=== PATIENT | female | born 1970 | race American Indian/Alaskan Native ===

== ENCOUNTER 2016-06-16 13:28 | Emergency (ER) | payer MEDICARE ==
--- NOTE | 2016-06-16 17:21 | Emergency Department Report ---
- General Chief complaint: Skin Rash Stated complaint: ARM AND LEG BITES Time Seen by Provider: 06/16/16 16:50 Source: patient Mode of arrival: Ambulatory Limitations: No Limitations - History of Present Illness Initial comments: Patient here reports that she was bit by a spider area to her right outer ankle and right forearm 2 days ago. Denies any fever or chills. Denies any nausea vomiting or diarrhea. She reports pain is 8 out of 10 to site and she took Benadryl but no relief. She reports redness and swelling to right forearm and right ankle that is getting worst. Denies any numbness or tingling to extremities. Denies any trauma. MD complaint: insect bite/sting, discoloration Onset/Timin -: days(s) Tetanus Up to Date: no Location: RUE (right forearm), RLE (right ankle) Severity: severe Severity scale (0 -10): 8 Quality: constant, other (sore) Consistency: constant Improves with: immobilization Worsens with: palpation, movement Context: witnessed insect bite Associated symptoms: athralgias Treatments Prior to Arrival: Benadryl - Related Data Previous Rx's Medication Instructions Recorded Last Taken Type HYDROcodone/APAP 5-325 [[place] 1 each PO Q6HR PRN #10 tablet 06/27/13 Unknown Rx 5-325 mg TAB] Ibuprofen [Motrin] 800 mg PO TID PRN #20 tablet 06/27/13 Unknown Rx Cyclobenzaprine [Flexeril 10mg] 10 mg PO TID PRN #12 tablet 05/16/14 Unknown Rx HYDROcodone/APAP 5-325 [[place] 1 each PO Q8HR PRN #10 tablet 05/16/14 Unknown Rx 5-325 mg TAB] Cyclobenzaprine [Flexeril 10 MG 10 mg PO TID PRN #20 tablet 06/24/14 Unknown Rx TAB] HYDROcodone/APAP 10-325 [[place] 1 each PO Q6HR PRN #10 tablet 06/24/14 Unknown Rx 10-325 mg TAB] Prednisone [Prednisone 10 mg 10 mg PO .TAPER #1 tab.ds.pk 06/24/14 Unknown Rx (6-Day Pack, 21 Tabs)] Ketorolac [Toradol] 10 mg PO Q6H PRN #12 tablet 02/11/16 Unknown Rx Ibuprofen [Motrin 600 MG tab] 600 mg PO Q8H PRN #20 tablet 06/16/16 Unknown Rx Sulfamethoxazole/Trimethoprim 1 each PO BID #20 tablet 06/16/16 Unknown Rx [Bactrim DS TAB] Allergies Allergy/AdvReac Type Severity Reaction Status Date / Time No Known Allergies Allergy Unverified 11/04/15 18:42 Abscess Boil HPI - HPI Chief Complaint: Skin Rash Stated Complaint: ARM AND LEG BITES Time Seen by Provider: 06/16/16 16:50 Home Medications: Previous Rx's Medication Instructions Recorded Last Taken Type HYDROcodone/APAP 5-325 [[place] 1 each PO Q6HR PRN #10 tablet 06/27/13 Unknown Rx 5-325 mg TAB] Ibuprofen [Motrin] 800 mg PO TID PRN #20 tablet 06/27/13 Unknown Rx Cyclobenzaprine [Flexeril 10mg] 10 mg PO TID PRN #12 tablet 05/16/14 Unknown Rx HYDROcodone/APAP 5-325 [[place] 1 each PO Q8HR PRN #10 tablet 05/16/14 Unknown Rx 5-325 mg TAB] Cyclobenzaprine [Flexeril 10 MG 10 mg PO TID PRN #20 tablet 06/24/14 Unknown Rx TAB] HYDROcodone/APAP 10-325 [[place] 1 each PO Q6HR PRN #10 tablet 06/24/14 Unknown Rx 10-325 mg TAB] Prednisone [Prednisone 10 mg 10 mg PO .TAPER #1 tab.ds.pk 06/24/14 Unknown Rx (6-Day Pack, 21 Tabs)] Ketorolac [Toradol] 10 mg PO Q6H PRN #12 tablet 02/11/16 Unknown Rx Ibuprofen [Motrin 600 MG tab] 600 mg PO Q8H PRN #20 tablet 06/16/16 Unknown Rx Sulfamethoxazole/Trimethoprim 1 each PO BID #20 tablet 06/16/16 Unknown Rx [Bactrim DS TAB] Allergies/Adverse Reactions: Allergies Allergy/AdvReac Type Severity Reaction Status Date / Time No Known Allergies Allergy Unverified 11/04/15 18:42 ED Review of Systems ROS: Stated complaint: ARM AND LEG BITES Other details as noted in HPI Comment: All other systems reviewed and negative Constitutional: denies: chills, fever ENT: denies: throat pain Respiratory: no symptoms reported Cardiovascular: denies: chest pain, palpitations, orthopnea, edema, syncope Gastrointestinal: denies: abdominal pain, nausea, vomiting, diarrhea Musculoskeletal: joint swelling, arthralgia. denies: back pain Skin: rash. denies: lesions Neurological: denies: headache, numbness, paresthesias, abnormal gait, vertigo ED Past Medical Hx - Past Medical History Previous Medical History?: Yes Hx Psychiatric Treatment: Yes (Bipolar, depression, anxiety) Additional medical history: Back and neck pain - Surgical History Past Surgical History?: Yes Hx Appendectomy: Yes (2010) Additional Surgical History: Tubaligation, Abd. hernnia repair - Family History Family history: hypertension - Social History Smoking Status: Current Every Day Smoker Substance Use Type: Alcohol - Medications Home Medications: Home Medications Medication Instructions Recorded Confirmed Last Taken Type HYDROcodone/APAP 5-325 [[place] 1 each PO Q6HR PRN #10 tablet 06/27/13 06/24/14 Unknown Rx 5-325 mg TAB] Ibuprofen [Motrin] 800 mg PO TID PRN #20 tablet 06/27/13 06/24/14 Unknown Rx Cyclobenzaprine [Flexeril 10mg] 10 mg PO TID PRN #12 tablet 05/16/14 Unknown Rx HYDROcodone/APAP 5-325 [[place] 1 each PO Q8HR PRN #10 tablet 05/16/14 Unknown Rx 5-325 mg TAB] Cyclobenzaprine [Flexeril 10 MG 10 mg PO TID PRN #20 tablet 06/24/14 Unknown Rx TAB] HYDROcodone/APAP 10-325 [[place] 1 each PO Q6HR PRN #10 tablet 06/24/14 Unknown Rx 10-325 mg TAB] Prednisone [Prednisone 10 mg 10 mg PO .TAPER #1 tab.ds.pk 06/24/14 Unknown Rx (6-Day Pack, 21 Tabs)] Ketorolac [Toradol] 10 mg PO Q6H PRN #12 tablet 02/11/16 Unknown Rx Ibuprofen [Motrin 600 MG tab] 600 mg PO Q8H PRN #20 tablet 06/16/16 Unknown Rx Sulfamethoxazole/Trimethoprim 1 each PO BID #20 tablet 06/16/16 Unknown Rx [Bactrim DS TAB] ED Physical Exam - General Limitations: No Limitations General appearance: alert, in no apparent distress - Head Head exam: Present: atraumatic, normocephalic - Eye Eye exam: Present: normal appearance, PERRL Pupils: Present: normal accommodation - ENT ENT exam: Present: normal exam, normal orophraynx, mucous membranes moist, TM's normal bilaterally, normal external ear exam - Neck Neck exam: Present: normal inspection, full ROM. Absent: tenderness, meningismus, lymphadenopathy - Respiratory Respiratory exam: Present: normal lung sounds bilaterally. Absent: respiratory distress - Cardiovascular Cardiovascular Exam: Present: regular rate, normal rhythm, normal heart sounds - GI/Abdominal GI/Abdominal exam: Present: soft, normal bowel sounds. Absent: distended, tenderness, guarding, rebound, rigid - Extremities Exam Extremities exam: Present: full ROM, tenderness (right forearm and right ankle) , normal capillary refill, joint swelling (right ankle), other (refill less than 3 seconds to extremities. She is able to move all her fingers without any difficulties. She is able to plantar flex and dorsiflex without any difficulties). Absent: normal inspection (right forearm in aspect right and swollen. No streaking noted. Right ankle out of aspect right and swollen without any streaking. Full range of motion to all extremities. No signs of neurovascular or tendon damage.), pedal edema, calf tenderness - Neurological Exam Neurological exam: Present: alert, oriented X3, normal gait, reflexes normal. Absent: motor sensory deficit - Psychiatric Psychiatric exam: Present: normal affect, normal mood - Skin Skin exam: Present: warm, dry, intact, rash, erythema - Expanded Skin Exam Expanded Distribution of rash: RUE (right forearm and right ankle), RLE Description of rash: Present: tenderness, erythematous (2 x 2 area of erythema to right forearm. 0.5 x 2 cm to right ankle), swelling (right ankle and right forearm), other (noted point of entry to right ankle and right forearm). Absent : discharge, fluctuant, indurated ED Course Vital Signs 06/16/16 06/16/16 14:59 17:49 Temperature 98.1 F Pulse Rate 64 61 Respiratory 18 16 Rate Blood Pressure 128/81 Blood Pressure 133/60 [Left] O2 Sat by Pulse 100 99 Oximetry - Reevaluation(s) Reevaluation #1: 06/16/16 18:26 Patient received Toradol 30 mg IM and districts in emergency room. ED Medical Decision Making - Medical Decision Making ED course: Patient received Boostrix and Toradol 30 mg IM and emergency room. Pain has been relieved. I assumed patient she has skin infection from insect bite. I discussed with her treatment plan and diagnosis. I discussed the patient if she redness and swelling increases over the next 24 hours thereafter to return to the emergency room MANN. She also received clindamycin 600 mg IM and emergency room without any adverse reaction. Patient with cellulitis status post insect bite to right forearm and right ankle. Discharged home with prescription for Bactrim DS and Motrin. Critical care attestation.: If time is entered above; I have spent that time in minutes in the direct care of this critically ill patient, excluding procedure time. ED Disposition Clinical Impression: Cellulitis of multiple sites, Arthralgia of right ankle Insect bite Qualifiers: Encounter type: initial encounter Qualified Code(s): W57.XXXA - Bitten or stung by nonvenomous insect and other nonvenomous arthropods, initial encounter Disposition: DISCHARGED TO HOME OR SELFCARE Is pt being admited?: No Does the pt Need Aspirin: No Condition: Stable Instructions: Arthralgia (ED), Insect Bite or Sting (ED), Cellulitis (ED) Additional Instructions: Please return to the emergency room if he notices fever, increased redness and swelling and increased pain to her right ankle and right forearm. Take medication as prescribed Follow-up with primary care physician in 24 hours Please keep affected area clean and dry Prescriptions: Ibuprofen [Motrin 600 MG tab] 600 mg PO Q8H PRN #20 tablet PRN Reason: Pain Sulfamethoxazole/Trimethoprim [Bactrim DS TAB] 1 each PO BID #20 tablet Referrals: PRIMARY CAREMD [Primary Care Provider] - 06/17/16 [facility] [Outside] - 06/17/16 Forms: Work/School Release Form(ED)
[2016-06-16] MEDS: TORADOL IM ONE (17:43)
[2016-06-16] MEDS: CLEOCIN IM ONE (17:43)
[2016-06-16] MEDS: BOOSTRIX IM ONE (17:43)
[2016-06-16 17:50] VITALS: BP 133/60
== END 2016-06-16 18:41 | disposition home or self-care (01) ==
LOC: ED 13:28
DX: L03.115 Cellulitis of right lower limb (principal); L03.113 Cellulitis of right upper limb; F31.9 Bipolar disorder, unspecified; F32.9 Major depressive disorder, single episode, unspecified; Z90.49 Acquired absence of other specified parts of digestive tract; Z98.51 Tubal ligation status; F17.200 Nicotine dependence, unspecified, uncomplicated; W57.XXXA Bitten or stung by nonvenomous insect and other nonvenomous arthropods, initial encounter; Y93.89 Activity, other specified; Y99.8 Other external cause status; Y92.89 Other specified places as the place of occurrence of the external cause
CPT/HCPCS: 90471; 90715; 96372; 99282; J1885

== ENCOUNTER 2017-02-22 12:47 | Emergency (ER) | payer MEDICARE ==
[2017-02-22 13:20] VITALS: BP 141/89
--- NOTE | 2017-02-22 13:20 | Emergency Department Report ---
ED Extremity Problem HPI - General Chief complaint: Shoulder Injury Stated complaint: SHOULDER PAIN Time Seen by Provider: 02/22/17 13:14 Source: patient Mode of arrival: Ambulatory Limitations: No Limitations - History of Present Illness Initial comments: PT states she came to the ED for a Toradol shot. PT states she has a hx of R shoulder bursitis. PT states 2-3 times a year the OTC Medication that she takes does not help. PT has previously been in pain management for this. 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 PT denies trauma. PT states she has had bursitis since 2011. PT states previous work ups have included plain films and MRI. MD Complaint: joint paint -: Gradual, days(s) (3 days ago pain increased ) Location: right History of Same: Yes (dx 2011 with bursitis ) -: Yes arthralgia, No fever, No associated chest pain Severity scale (0 -10): 10 Quality: constant Consistency: constant Improves with: nothing Worsens with: palpation, other (movement ) Associated Symptoms: denies other symptoms. denies: chest pain, shortness of breath, fever - Related Data Previous Rx's Medication Instructions Recorded Last Taken Type Prednisone [Prednisone 10 mg 10 mg PO .TAPER #1 tab.ds.pk 06/24/14 Unknown Rx (6-Day Pack, 21 Tabs)] Sulfamethoxazole/Trimethoprim 1 each PO BID #20 tablet 06/16/16 Unknown Rx [Bactrim DS TAB] Ibuprofen [Motrin 600 MG tab] 600 mg PO Q8H PRN #20 tablet 02/22/17 Unknown Rx methOCARBAMOL [Robaxin TAB] 500 mg PO Q6H PRN #14 tablet 02/22/17 Unknown Rx Allergies Allergy/AdvReac Type Severity Reaction Status Date / Time No Known Allergies Allergy Unverified 11/04/15 18:42 ED Review of Systems ROS: Stated complaint: SHOULDER PAIN Other details as noted in HPI Comment: All other systems reviewed and negative Constitutional: denies: fever, malaise Cardiovascular: denies: chest pain Gastrointestinal: denies: abdominal pain, nausea, vomiting Genitourinary: denies: abnormal menses (lmp 02-08-17) Musculoskeletal: arthralgia. denies: back pain, joint swelling ED Past Medical Hx - Past Medical History Hx Psychiatric Treatment: Yes (Bipolar, depression, anxiety) Additional medical history: Back and neck pain - Surgical History Hx Appendectomy: Yes (2010) Additional Surgical History: Tubaligation, Abd. hernnia repair - Social History Smoking Status: Current Every Day Smoker Substance Use Type: Alcohol - Medications Home Medications: Home Medications Medication Instructions Recorded Confirmed Last Taken Type Prednisone [Prednisone 10 mg 10 mg PO .TAPER #1 tab.ds.pk 06/24/14 Unknown Rx (6-Day Pack, 21 Tabs)] Sulfamethoxazole/Trimethoprim 1 each PO BID #20 tablet 06/16/16 Unknown Rx [Bactrim DS TAB] Ibuprofen [Motrin 600 MG tab] 600 mg PO Q8H PRN #20 tablet 02/22/17 Unknown Rx methOCARBAMOL [Robaxin TAB] 500 mg PO Q6H PRN #14 tablet 02/22/17 Unknown Rx ED Physical Exam - General Limitations: No Limitations General appearance: alert, in no apparent distress - Head Head exam: Present: atraumatic, normocephalic, normal inspection - Eye Eye exam: Present: normal appearance, PERRL, EOMI. Absent: conjunctival injection - ENT ENT exam: Present: normal exam, normal external ear exam - Neck Neck exam: Present: normal inspection, full ROM. Absent: tenderness, lymphadenopathy - Respiratory Respiratory exam: Present: normal lung sounds bilaterally. Absent: respiratory distress, chest wall tenderness - Cardiovascular Cardiovascular Exam: Present: regular rate, normal rhythm, normal heart sounds - GI/Abdominal GI/Abdominal exam: Present: soft. Absent: tenderness - Extremities Exam Extremities exam: Present: normal inspection, full ROM, tenderness, normal capillary refill - Expanded Upper Extremity Exam Right General: Present: normal inspection Shoulder Exam: Present: normal inspection, full ROM, tenderness (post shoulder ) . Absent: swelling, deformity, crepidus, tenderness over AC joint Upper Arm exam: Present: normal inspection Vascular: Absent: vascular compromise Left General: Present: normal inspection - Back Exam Back exam: Present: normal inspection, full ROM, tenderness (to R post. shoulder ). Absent: CVA tenderness (R), CVA tenderness (L) - Neurological Exam Neurological exam: Present: alert, oriented X3, normal gait - Expanded Neurological Exam Expanded Patient oriented to: Present: person, place, time Speech: Present: fluid speech Best Eye Response ([place]): (4) open spontaneously Best Motor Response ([place]): (6) obeys commands Best Verbal Response ([place]): (5) oriented [place] Total: 15 - Psychiatric Psychiatric exam: Present: normal affect, normal mood - Skin Skin exam: Present: warm, dry, intact, normal color. Absent: rash ED Course Vital Signs 02/22/17 13:17 Temperature 98.5 F Pulse Rate 75 Respiratory 16 Rate Blood Pressure 141/89 O2 Sat by Pulse 100 Oximetry - Reevaluation(s) Reevaluation #1: 02/22/17 13:25 PT does not want repeat imaging, given this is a chronic problem and pt denies new injury, this seems reasonable. Will treat her acute on chronic pain with Toradol injection and RX Motrin and Robaxin. PT verbalizes understanding. - Pulse Oximetry Interpretation Digit-Finger Initial Pulse Oximetry Readin Actions Taken: none ED Medical Decision Making - Differential Diagnosis bursitis, overuse, shoulder pain, chronic pain Critical Care Time: No Critical care attestation.: If time is entered above; I have spent that time in minutes in the direct care of this critically ill patient, excluding procedure time. ED Disposition Clinical Impression: Chronic right shoulder pain Disposition: DC-01 TO HOME OR SELFCARE Is pt being admited?: No Does the pt Need Aspirin: No Condition: Stable Instructions: Shoulder Bursitis (ED) Additional Instructions: Follow up with PCP in 3-5 days Have your BP rechecked at follow up No driving or alcohol after Robaxin Prescriptions: Ibuprofen [Motrin 600 MG tab] 600 mg PO Q8H PRN #20 tablet PRN Reason: Pain methOCARBAMOL [Robaxin TAB] 500 mg PO Q6H PRN #14 tablet PRN Reason: Pain Referrals: [facility] [Outside] - 3-5 Days CARMELO ORDOÑEZ MD [Staff Physician] - 3-5 Days WEST HO MD [Staff Physician] - 3-5 Days Forms: Work/School Release Form(ED) Time of Disposition: 13:29
[2017-02-22] MEDS: TORADOL IM ONE (13:27)
== END 2017-02-22 15:35 | disposition home or self-care (01) ==
LOC: ED 12:47
DX: M25.511 Pain in right shoulder (principal); G89.29 Other chronic pain; F17.200 Nicotine dependence, unspecified, uncomplicated
CPT/HCPCS: 96372; 99282; J1885

== ENCOUNTER 2017-02-25 02:39 | Emergency (ER) | payer MEDICARE ==
[2017-02-25 06:16] VITALS: BP 136/91
--- NOTE | 2017-02-25 07:43 | Emergency Department Report ---
Upper Extremity - HPI Chief Complaint: Shoulder Injury Stated Complaint: R. SHOULDER PAIN Time Seen by Provider: 02/25/17 07:08 Upper Extremity: Right Shoulder (Shoulder pain, chronic) Occurred When: 3 Days Mechanism: Other (painting) Severity: severe (10/10) Symptoms: Yes Pain with Movement (rt shoulder), No Deformity, No Limited Range of Movement (pain with movement), No Numbness, No Weakness, No Swelling, No Bruising/Ecchymosis, No Laceration or Abrasion Other History: Report that she was diagnosed with bursitis and she's been seen here on 1016 for complaints of bursitis. She said her pain is 10 out of 10 and aching. She said that she has not made it to the orthopedic doctor as yet. Patient said because the weather change her pain is increased and over the last 3 days she's been having a lot of pain in her shoulder. Denies any trauma. 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 Denies any numbness or tingling to extremities. She says she's taken ibuprofen but it is not helping. Pain is worse with movement better with rest ED Review of Systems ROS: Stated complaint: R. SHOULDER PAIN Other details as noted in HPI Comment: All other systems reviewed and negative Constitutional: no symptoms reported Respiratory: no symptoms reported Cardiovascular: denies: chest pain, palpitations, edema, syncope Gastrointestinal: denies: abdominal pain, nausea, vomiting Musculoskeletal: arthralgia. denies: back pain, joint swelling, myalgia Skin: denies: rash Neurological: denies: headache, weakness, numbness, paresthesias, confusion, abnormal gait, vertigo ED Past Medical Hx - Past Medical History Previous Medical History?: Yes Hx Seizures: Yes Hx Psychiatric Treatment: Yes (bipolar disorder and anxiety and depression) Additional medical history: Back and neck pain - Surgical History Past Surgical History?: Yes Hx Appendectomy: Yes (2010) Additional Surgical History: Tubaligation, Abd. hernnia repair - Family History Family history: hypertension - Social History Smoking Status: Current Every Day Smoker Substance Use Type: Alcohol - Medications Home Medications: Home Medications Medication Instructions Recorded Confirmed Last Taken Type Prednisone [Prednisone 10 mg 10 mg PO .TAPER #1 tab.ds.pk 06/24/14 Unknown Rx (6-Day Pack, 21 Tabs)] Sulfamethoxazole/Trimethoprim 1 each PO BID #20 tablet 06/16/16 Unknown Rx [Bactrim DS TAB] Ibuprofen [Motrin 600 MG tab] 600 mg PO Q8H PRN #20 tablet 02/22/17 Unknown Rx methOCARBAMOL [Robaxin TAB] 500 mg PO Q6H PRN #14 tablet 02/22/17 Unknown Rx traMADol [Ultram] 50 mg PO Q6HR PRN #20 tablet 02/25/17 Unknown Rx Upper Extremity Exam - Exam General: Vital signs noted. No distress. Alert and acting appropriately. Head and Torso: No HEENT Abnormality (normal exam), No Neck Tenderness (normal exam), No Chest/Lungs Abnormality (normal exam), No Abdominal Tenderness ( normal exam), No Back Tenderness (normal exam) Shoulder Exam: Yes Normal Range of Motion in Shoulder (A showed full range of motion to both shoulders but she said it's painful when she raises her right shoulder overhead.), No Shoulder Tenderness (normal exam), No Clavicle Tenderness (normal exam), No Shoulder Deformity, No AC Joint Tenderness Arm Exam: No Arm/Humerus Tenderness, No Arm Deformity Elbow: Yes Normal Range of Motion in Elbow, No Elbow Tenderness, No Elbow Deformity Forearm: No Forearm Tenderness, No Forearm Deformity, No Pain with Pronation, No Pain with Supination Wrist: Yes Normal ROM in Wrist, No Wrist Tenderness, No Wrist Deformity, No Snuffbox Tenderness, No Pain with Axial Thumb Compression Hand: Yes Normal ROM in Digit(s), No Hand Tenderness, No Hand Deformity, No Digit Tenderness, No Digit(s) Deformity, No Tendon Dysfunction CMS Exam: Yes Normal Distal Pulses, Yes Normal Capillary Refill, Yes Normal Distal Sensation, No Broken Skin ED Course Vital Signs 02/25/17 02/25/17 03:09 06:13 Temperature 98.3 F 98.4 F Pulse Rate 85 83 Respiratory 18 Rate Blood Pressure 151/105 136/91 O2 Sat by Pulse 100 100 Oximetry - Reevaluation(s) Reevaluation #1: 02/25/17 08:53 Patient given Decadron 10 mg IM, Toradol 60 mg IM and Percocet 5/325 mg 2 tablets emergency room for pain which relieved her pain. ED Medical Decision Making - Medical Decision Making ED course: Pt here for flareup of bursitis right shoulder pain. She was here on 02/22/2017 for similar problems and was treated with Flexeril and ibuprofen but she said is just got worse because the weather got cold her and she hasn't had a chance to follow up with orthopedic. Patient was given Decadron 10 mg IM , Toradol 60 mg IM and Percocet 5/325 2 tablets by mouth in emergency room. Her that she needs to rest for 72 hours and follow-up with orthopedic doctor on Tuesday to call this morning to schedule an appointment.Pt discharge home with her family with prescription for tramadol Critical care attestation.: If time is entered above; I have spent that time in minutes in the direct care of this critically ill patient, excluding procedure time. ED Disposition Clinical Impression: Arthralgia of right shoulder region, Chronic bursitis of right shoulder Disposition: - TO HOME OR SELFCARE Is pt being admited?: No Does the pt Need Aspirin: No Condition: Stable Instructions: Arthralgia (ED), Shoulder Bursitis (ED) Additional Instructions: Please follow-up with orthopedic doctor as instructed You can continue to take Motrin that was prescribed for you 3 days ago for shoulder pain and a few pain becomes worse then you can take Ultram. Reason drive or operate heavy machinery while taking Ultram as this medication causes drowsiness Prescriptions: traMADol [Ultram] 50 mg PO Q6HR PRN #20 tablet PRN Reason: Pain Referrals: MELA VALENTINE MD [Primary Care Provider] - 02/28/17 CARMELO ORDOÑEZ MD [Staff Physician] - 02/28/17 Forms: Accompanied Note, Work/School Release Form(ED)
[2017-02-25] MEDS ORDERED: PERCOCET 5/325 PO ONE (08:05)
[2017-02-25] MEDS ORDERED: DECADRON IM ONE (08:05)
[2017-02-25] MEDS ORDERED: TORADOL IM ONE (08:05)
== END 2017-02-25 09:05 | disposition home or self-care (01) ==
LOC: ED 02:39
DX: M75.51 Bursitis of right shoulder (principal); F31.9 Bipolar disorder, unspecified; F17.200 Nicotine dependence, unspecified, uncomplicated; Z90.49 Acquired absence of other specified parts of digestive tract; Z98.51 Tubal ligation status
CPT/HCPCS: 96372; 99282; J1100; J1885

== ENCOUNTER 2018-05-10 09:49 | Emergency (ER) | payer MEDICARE ==
[2018-05-10 10:14] VITALS: BP 109/79
[2018-05-10] MEDS ORDERED: IBUPROFEN PO ONE (10:40)
--- NOTE | 2018-05-10 10:45 | Emergency Department Report ---
ED Abdominal Pain HPI - General Chief Complaint: Abdominal Pain Stated Complaint: RT SIDE/STOMACH/SORE THROAT Time Seen by Provider: 05/10/18 10:34 Source: patient Mode of arrival: Ambulatory Limitations: No Limitations - History of Present Illness Initial Comments: Patient is a 47-year-old black female is complaining of right lower quadrant discomfort for the past 2 days. Patient also has some dysuria and urinary frequency as well. Patient states the pain is a 6 out of 10 in severity and is radiating to the right lower back. Patient denies any nausea vomiting diarrhea or fever at this time. - Related Data Previous Rx's Medication Instructions Recorded Last Taken Type Prednisone [Prednisone 10 mg 10 mg PO .TAPER #1 tab.ds.pk 06/24/14 Unknown Rx (6-Day Pack, 21 Tabs)] Sulfamethoxazole/Trimethoprim 1 each PO BID #20 tablet 06/16/16 Unknown Rx [Bactrim DS TAB] Ibuprofen [Motrin 600 MG tab] 600 mg PO Q8H PRN #20 tablet 02/22/17 Unknown Rx methOCARBAMOL [Robaxin TAB] 500 mg PO Q6H PRN #14 tablet 02/22/17 Unknown Rx traMADol [Ultram] 50 mg PO Q6HR PRN #20 tablet 02/25/17 Unknown Rx Ciprofloxacin HCl [Cipro] 500 mg PO BID #14 tablet 05/10/18 Unknown Rx Ibuprofen [Motrin] 600 mg PO Q8H PRN #20 tablet 05/10/18 Unknown Rx Phenazopyridine [Pyridium] 100 mg PO TID 2 Days tab 05/10/18 Unknown Rx traMADol [Ultram] 50 mg PO Q6HR PRN #10 tablet 05/10/18 Unknown Rx Allergies Allergy/AdvReac Type Severity Reaction Status Date / Time No Known Allergies Allergy Unverified 11/04/15 18:42 ED Review of Systems ROS: Stated complaint: RT SIDE/STOMACH/SORE THROAT Other details as noted in HPI Comment: All other systems reviewed and negative ED Past Medical Hx - Past Medical History Previous Medical History?: Yes Hx Seizures: Yes Hx Psychiatric Treatment: Yes (bipolar disorder and anxiety and depression) Additional medical history: Back and neck pain - Surgical History Past Surgical History?: Yes Hx Appendectomy: Yes (2010) Additional Surgical History: Tubaligation, Abd. hernnia repair - Social History Smoking Status: Current Every Day Smoker Substance Use Type: None - Medications Home Medications: Home Medications Medication Instructions Recorded Confirmed Last Taken Type Prednisone [Prednisone 10 mg 10 mg PO .TAPER #1 tab.ds.pk 06/24/14 Unknown Rx (6-Day Pack, 21 Tabs)] Sulfamethoxazole/Trimethoprim 1 each PO BID #20 tablet 06/16/16 Unknown Rx [Bactrim DS TAB] Ibuprofen [Motrin 600 MG tab] 600 mg PO Q8H PRN #20 tablet 02/22/17 Unknown Rx methOCARBAMOL [Robaxin TAB] 500 mg PO Q6H PRN #14 tablet 02/22/17 Unknown Rx traMADol [Ultram] 50 mg PO Q6HR PRN #20 tablet 02/25/17 Unknown Rx Ciprofloxacin HCl [Cipro] 500 mg PO BID #14 tablet 05/10/18 Unknown Rx Ibuprofen [Motrin] 600 mg PO Q8H PRN #20 tablet 05/10/18 Unknown Rx Phenazopyridine [Pyridium] 100 mg PO TID 2 Days tab 05/10/18 Unknown Rx traMADol [Ultram] 50 mg PO Q6HR PRN #10 tablet 05/10/18 Unknown Rx ED Physical Exam - General Limitations: No Limitations General appearance: alert, in no apparent distress - Head Head exam: Present: atraumatic, normocephalic - Eye Eye exam: Present: normal appearance - ENT ENT exam: Present: mucous membranes moist - Neck Neck exam: Present: normal inspection - Respiratory Respiratory exam: Present: normal lung sounds bilaterally. Absent: respiratory distress, wheezes, rales - Cardiovascular Cardiovascular Exam: Present: regular rate, normal rhythm. Absent: systolic murmur, diastolic murmur, rubs, gallop - GI/Abdominal GI/Abdominal exam: Present: soft, tenderness (RLQ), normal bowel sounds. Absent: distended, guarding, rebound, rigid - Extremities Exam Extremities exam: Present: normal inspection - Back Exam Back exam: Present: normal inspection - Neurological Exam Neurological exam: Present: alert, oriented X3 - Psychiatric Psychiatric exam: Present: normal affect, normal mood - Skin Skin exam: Present: warm, dry, intact, normal color. Absent: rash ED Course Vital Signs 05/10/18 05/10/18 10:12 10:44 Temperature 98.5 F Pulse Rate 64 Respiratory 16 18 Rate Blood Pressure 109/79 O2 Sat by Pulse 96 Oximetry ED Medical Decision Making - Lab Data Lab Results 05/10/18 Range/Units Unknown Urine Color Yellow (Yellow) Urine Turbidity Clear (Clear) Urine pH 5.0 (5.0-7.0) Ur Specific [place] 1.020 (1.003-1.030) Urine Protein <15 mg/dl (Negative) mg/dL Urine Glucose (UA) Neg (Negative) mg/dL Urine Ketones Neg (Negative) mg/dL Urine Blood Neg (Negative) Urine Nitrite Neg (Negative) Urine Bilirubin Neg (Negative) Urine Urobilinogen < 2.0 (<2.0) mg/dL Ur Leukocyte Esterase Tr (Negative) Urine WBC (Auto) < 1.0 (0.0-6.0) /HPF Urine RBC (Auto) 4.0 (0.0-6.0) /HPF U Epithel Cells (Auto) 1.0 (0-13.0) /HPF Urine Mucus Few /HPF Urine HCG, Qual Negative (Negative) - Medical Decision Making Despite the fact the patient had a relatively normal urine patient is very classic with her symptoms. She has dysuria as well as urinary frequency and suprapubic discomfort with radiation to the lower back. Urine cultures will be sent. Patient be treated for interstitial cystitis and given urology for follow-up. Critical care attestation.: If time is entered above; I have spent that time in minutes in the direct care of this critically ill patient, excluding procedure time. ED Disposition Clinical Impression: Interstitial cystitis Disposition: DC-01 TO HOME OR SELFCARE Is pt being admited?: No Does the pt Need Aspirin: No Condition: Stable Instructions: Urinary Tract Infection in Women (ED) Referrals: LILIA BINGHAM MD [Staff Physician] - as needed Time of Disposition: 11:29
[2018-05-10 10:52] LABS: Bilirubin,Urine NEG (Negative); Blood,Urine NEG (Negative); Color,Urine Yellow (Yellow); Mucus,Urine FEW /HPF; Protein,Urine <15 mg/dL mg/dL (Negative); Urobilinogen,Urine < 2.0 mg/dL (<2.0); WBC,Urine < 1.0 /HPF (0.0-6.0)
[2018-05-10 11:03] LABS: HCG Qualitative,Urine Negative (Negative)
== END 2018-05-10 11:34 | disposition home or self-care (01) ==
LOC: ED 09:49
DX: N30.10 Interstitial cystitis (chronic) without hematuria (principal); F31.9 Bipolar disorder, unspecified; F32.9 Major depressive disorder, single episode, unspecified; F41.9 Anxiety disorder, unspecified; Z90.49 Acquired absence of other specified parts of digestive tract; F17.200 Nicotine dependence, unspecified, uncomplicated
CPT/HCPCS: 81001; 81025

== ENCOUNTER 2020-04-09 09:57 | Emergency (ER) | payer MEDICARE ==
[2020-04-09 11:45] VITALS: BP 126/80
--- NOTE | 2020-04-09 13:28 | Event Note ---
ED Screening Note Date of service: 04/09/20 Time: 13:25 ED Screening Note: 49-year-old -[place] female presents to the nausea vomiting cough chest pain with inhalation and coughing denies any fever chills. States she took Tylenol for [employer] that states she developed. She also noticed increased urination. This initial assessment/diagnostic orders/clinical plan/treatment(s) is/are subject to change based on patients health status, clinical progression and re- assessment by fellow clinical providers in the ED. Further treatment and workup at subsequent clinical providers discretion. Patient/guardian urged not to elope from the ED as their condition may be serious if not clinically assessed and managed. Initial orders include: Urinalysis chest x-ray p.o. challenge
[2020-04-09 13:56] LABS: Bacteria,Urine 1+ /HPF (Negative); Bilirubin,Urine NEG (Negative); Blood,Urine SM (Negative); Color,Urine Yellow (Yellow); Mucus,Urine FEW /HPF; Protein,Urine <15 mg/dL mg/dL (Negative); WBC,Urine > 182.0 /HPF (0.0-6.0)
--- NOTE | 2020-04-09 14:21 | XRay Report ---
CHEST 1 VIEW INDICATION / CLINICAL INFORMATION: sob,cough and rales. COMPARISON: 11/04/2015 FINDINGS: SUPPORT DEVICES: None. HEART / MEDIASTINUM: No significant abnormality. LUNGS / PLEURA: No significant pulmonary or pleural abnormality. No pneumothorax. ADDITIONAL FINDINGS: No significant additional findings. IMPRESSION: No significant abnormality or interval change from 11/04/2015 Signer Name: Matthew Melton MD FACPao Signed: 04/09/2020 2:16 PM Workstation Name: [id number]
[2020-04-09] MEDS ORDERED: SIMETHICONE 80 MG CHEW TAB PO ONE (16:35)
[2020-04-09] MEDS ORDERED: LIDOCAINE-MPF (1%) 10 MG/1 ML VIAL 5 ML INFILTRATI ONE (16:35)
--- NOTE | 2020-04-09 16:37 | Emergency Department Report ---
ED General Adult HPI - General Chief complaint: Upper Respiratory Infection Stated complaint: CHEST PAIN Time Seen by Provider: 04/09/20 16:17 Source: patient Mode of arrival: Ambulatory Limitations: No Limitations - History of Present Illness Initial comments: Patient is a 49-year-old -[place] well-dressed female who comes to the emergency room with numerous generalized and vague complaints. Patient states that she has had nausea, chills, cough, pain with inhalation, and body aches for 2 days. She has had no fever. She is ambulatory to the ER. She has not seen her primary care doctor. Nothing makes her aches and pains better or worse. After completion of HPI it is clear the patient was concerned that she had Covid. Past medical history see next tab. She denies any hypertension, hyperlipidemia, strokes, heart disease. She is not obese. She does smoke. She denies alcohol. Denies drugs. Home medications none Past surgical history tubal, appendectomy, hernia as a child. She has no allergies. On further probing patient states that she has had urgency and back pain. She denies any fever. She denies any abdominal pain. She states that she vomited once this morning at 8:00 after coughing. Vital signs on admission to the ER were normal. She has no tachycardia. No hypotension. She has no fever. She is ambulatory and nontoxic on exam. -: Gradual, days(s) (2) Consistency: intermittent Worsens with: none Associated Symptoms: other Treatments Prior to Arrival: none - Related Data Previous Rx's Medication Instructions Recorded Last Taken Type Fluconazole [Diflucan TAB] 100 mg PO QDAY #2 tablet 04/09/20 Unknown Rx Sulfamethoxazole/Trimethoprim 1 each PO BID #10 tablet 04/09/20 Unknown Rx [Bactrim DS TAB] Allergies Allergy/AdvReac Type Severity Reaction Status Date / Time No Known Allergies Allergy Unverified 11/04/15 18:42 ED Review of Systems ROS: Stated complaint: CHEST PAIN Other details as noted in HPI Comment: All other systems reviewed and negative Cardiovascular: denies: chest pain, palpitations, dyspnea on exertion, orthopnea, edema, syncope, paroxysmal nocturnal dyspnea ED Past Medical Hx - Past Medical History Previous Medical History?: Yes Hx Seizures: Yes Hx Psychiatric Treatment: Yes (bipolar disorder and anxiety and depression) Additional medical history: Back and neck pain= chronic - Surgical History Hx Appendectomy: Yes (2011) Additional Surgical History: Tubaligation, Abd. hernnia repair - Family History Family history: no significant - Social History Smoking Status: Current Every Day Smoker Substance Use Type: None - Medications Home Medications: Home Medications Medication Instructions Recorded Confirmed Last Taken Type Fluconazole [Diflucan TAB] 100 mg PO QDAY #2 tablet 04/09/20 Unknown Rx Sulfamethoxazole/Trimethoprim 1 each PO BID #10 tablet 04/09/20 Unknown Rx [Bactrim DS TAB] ED Physical Exam - General Limitations: No Limitations General appearance: alert, in no apparent distress - Head Head exam: Present: atraumatic, normocephalic - Eye Eye exam: Present: normal appearance, PERRL - ENT ENT exam: Present: normal exam, mucous membranes moist - Neck Neck exam: Present: normal inspection - Respiratory Respiratory exam: Present: normal lung sounds bilaterally. Absent: respiratory distress, wheezes, rales, rhonchi, stridor, chest wall tenderness, accessory muscle use, decreased breath sounds, prolonged expiratory - Cardiovascular Cardiovascular Exam: Present: regular rate, normal rhythm, normal heart sounds. Absent: bradycardia, tachycardia, irregular rhythm, systolic murmur, diastolic murmur, rubs, gallop - GI/Abdominal GI/Abdominal exam: Present: soft, normal bowel sounds. Absent: distended, tenderness, guarding, rebound, rigid, diminished bowel sounds, hyperactive bowel sounds, hypoactive bowel sounds, organomegaly, mass, bruit, pulsatile mass, hernia - Rectal Rectal exam: Present: deferred - Extremities Exam Extremities exam: Present: normal inspection - Back Exam Back exam: Present: normal inspection. Absent: CVA tenderness (R), CVA tenderness (L) - Neurological Exam Neurological exam: Present: alert, oriented X3 - Psychiatric Psychiatric exam: Present: normal affect, normal mood - Skin Skin exam: Present: warm, dry, intact, normal color. Absent: rash ED Course Vital Signs 04/09/20 11:44 Temperature 98.6 F Pulse Rate 76 Respiratory 20 Rate Blood Pressure 126/80 [Right] O2 Sat by Pulse 100 Oximetry - Reevaluation(s) Reevaluation #1: 04/09/20 Patient to [facility] for exam. H&P obtained. Patient medicated. Taking p.o. Ambulatory. Patient is nontoxic [id number]. Will be discharged home with discharge instructions. Patient verbalizes understanding of discharge plan of care and feels better being told that she does not have Covid. ED Medical Decision Making - Radiology Data Radiology results: report reviewed, image reviewed No consolidation or infiltrate located on x-ray. - Medical Decision Making Lab Results 04/09/20 Range/Units Unknown Urine Color Yellow (Yellow) Urine Turbidity Cloudy (Clear) Urine pH 6.0 (5.0-7.0) Ur Specific [place] 1.017 (1.003-1.030) Urine Protein <15 mg/dl (Negative) mg/dL Urine Glucose (UA) Neg (Negative) mg/dL Urine Ketones Neg (Negative) mg/dL Urine Blood Sm (Negative) Urine Nitrite Neg (Negative) Urine Bilirubin Neg (Negative) Urine Urobilinogen 2.0 (<2.0) mg/dL Ur Leukocyte Esterase Lg (Negative) Urine WBC (Auto) > 182.0 H (0.0-6.0) /HPF Urine RBC (Auto) 9.0 (0.0-6.0) /HPF U Epithel Cells (Auto) 6.0 (0-13.0) /HPF Urine Bacteria (Auto) 1+ (Negative) /HPF Urine Mucus Few /HPF Vital Signs 04/09/20 11:44 Temperature 98.6 F Pulse Rate 76 Respiratory 20 Rate Blood Pressure 126/80 [Right] O2 Sat by Pulse 100 Oximetry X-ray with no infiltrate. Urine noted with a small amount of hematuria, large leuks and greater than 182 WBCs. Patient is a nonill and nontoxic appearing with normal vital signs on exam. She has no CVA tenderness. Her abdomen is soft and nontender. Patient has had a tubal ligation. She denies any vaginal bleeding or discharge. Patient is ambulatory nontoxic with normal vital signs. Heart rate on exam 88. Oxygen saturation by provider 100% on room air Further probing indicates patient was concerned that she had Covid. Patient reassured that her x-ray is not consistent with that of Covid. She does not have any hypoxia. Patient has been educated on further monitoring for any Covid symptoms given that she is been in the ER. Patient medicated with a gram of IM Rocephin. She was also given a simethicone for her complaint of belching. Patient is being discharged to home with detailed follow-up instructions including diet, activity, follow-up and medication regimen. She has been instructed to follow-up with her primary care doctor within 48 hours for reexamination. She understands that we need to be sure that she responds appropriately to her medications. Patient verbalizes understanding. - Differential Diagnosis Rule out upper respiratory tract infection versus other infectious etiology Critical care attestation.: If time is entered above; I have spent that time in minutes in the direct care of this critically ill patient, excluding procedure time. ED Disposition Clinical Impression: UTI (urinary tract infection) Disposition: TO HOME OR SELFCARE Is pt being admited?: No Does the pt Need Aspirin: No Condition: Stable Instructions: Urinary Tract Infection, Adult Additional Instructions: Diet as tolerated. Drink a lot of water. Sugar-free cranberry juice may help. You can use Motrin or Tylenol for any pain. Rest. Medications as ordered here tonight. Follow-up with primary care physician in the next 48 hours for reexamination. I have given you referral to our family medicine doctor should you need to see with someone sooner than your primary care can accommodate. Good handwashing and wear your face mask to prevent Covid. Prescriptions: Sulfamethoxazole/Trimethoprim [Bactrim DS TAB] 1 each PO BID #10 tablet Fluconazole [Diflucan TAB] 100 mg PO QDAY #2 tablet Referrals: PRIMARY CARE [Primary Care Provider] - 3-5 Days Time of Disposition: 16:44
== END 2020-04-09 17:50 | disposition home or self-care (01) ==
LOC: ED 09:57
DX: N39.0 Urinary tract infection, site not specified (principal); G40.909 Epilepsy, unspecified, not intractable, without status epilepticus; F31.9 Bipolar disorder, unspecified; F17.200 Nicotine dependence, unspecified, uncomplicated; Z98.51 Tubal ligation status; Z79.899 Other long term (current) drug therapy
CPT/HCPCS: 71046; 81001; 96372; 99284; J0696

== ENCOUNTER 2020-09-11 07:03 | Emergency (ER) | payer MEDICARE ==
[2020-09-11 07:20] VITALS: BP 109/53
--- NOTE | 2020-09-11 11:47 | Emergency Department Report ---
ED Upper Extremity Inj HPI - General Chief Complaint: Extremity Injury, Upper Stated Complaint: RT ARM PAIN Time Seen by Provider: 09/11/20 09:03 Source: patient Mode of arrival: Ambulatory Limitations: No Limitations - History of Present Illness Initial Comments: This is a 49-year-old female nontoxic, well nourished in appearance, no acute signs of distress presents to the ED with c/o of acute on chronic right shoulder pain x years. History of bursitis and stated symptoms are similar to bursitis flareup. Patient stated she typically gets steroid and Toradol to help with significantly decreases the symptoms. Patient denies any injuries or trauma. Patient denies any numbness, tingling, fever, chills, nausea, vomiting, chest pain, shortness of breath, headache, stiff neck. Patient denies any joint swelling or joint redness. Patient stated has some decreased range of motion due to pain. Patient denies any allergies or significant past medical history. MD Complaint: Injury to:: right, shoulder -: year(s) Other Extremity Injury: Shoulder: Right Other Injuries: none Severity scale (0 -10): 8 Improves With: immobilization Worsens With: movement of extremity Associated Symptoms: denies other symptoms. denies: weakness, numbness, neck pain, suspects foreign body, nausea/vomiting, heard/felt popping sensat - Related Data Previous Rx's Medication Instructions Recorded Last Taken Type Fluconazole [Diflucan TAB] 100 mg PO QDAY #2 tablet 04/09/20 Unknown Rx Sulfamethoxazole/Trimethoprim 1 each PO BID #10 tablet 04/09/20 Unknown Rx [Bactrim DS TAB] Allergies Allergy/AdvReac Type Severity Reaction Status Date / Time No Known Allergies Allergy Verified 09/11/20 07:16 ED Review of Systems ROS: Stated complaint: RT ARM PAIN Other details as noted in HPI Comment: All other systems reviewed and negative Constitutional: denies: chills, fever Eyes: denies: eye pain, eye discharge, vision change ENT: denies: ear pain, throat pain Respiratory: denies: cough, shortness of breath, wheezing Cardiovascular: denies: chest pain, palpitations Endocrine: no symptoms reported Gastrointestinal: denies: abdominal pain, nausea, diarrhea Genitourinary: denies: urgency, dysuria, discharge Musculoskeletal: denies: back pain, joint swelling, arthralgia Skin: denies: rash, lesions Neurological: denies: headache, weakness, paresthesias Psychiatric: denies: anxiety, depression Hematological/Lymphatic: denies: easy bleeding, easy bruising ED Past Medical Hx - Past Medical History Hx Seizures: Yes Hx Psychiatric Treatment: Yes (bipolar disorder and anxiety and depression) Additional medical history: Back and neck pain= chronic/ BURSITIS - Surgical History Hx Appendectomy: Yes (2010) Additional Surgical History: Tubaligation, Abd. hernnia repair - Social History Smoking Status: Current Every Day Smoker Substance Use Type: None - Medications Home Medications: Home Medications Medication Instructions Recorded Confirmed Last Taken Type Fluconazole [Diflucan TAB] 100 mg PO QDAY #2 tablet 04/09/20 Unknown Rx Sulfamethoxazole/Trimethoprim 1 each PO BID #10 tablet 04/09/20 Unknown Rx [Bactrim DS TAB] ED Physical Exam - General Limitations: No Limitations General appearance: alert, in no apparent distress - Head Head exam: Present: atraumatic, normocephalic - Eye Eye exam: Present: normal appearance - Neck Neck exam: Present: normal inspection, full ROM - Respiratory Respiratory exam: Absent: respiratory distress - Cardiovascular Cardiovascular Exam: Present: regular rate - Extremities Exam Extremities exam: Present: normal inspection, full ROM, tenderness, normal capillary refill. Absent: joint swelling - Expanded Upper Extremity Exam Right General: Present: normal inspection Shoulder Exam: Present: normal inspection, full ROM, tenderness. Absent: swelling, abrasion, laceration, ecchymosis, deformity, crepidus, dislocation, erythema, tenderness over AC joint Upper Arm exam: Present: normal inspection, full ROM. Absent: tenderness, swelling Elbow exam: Present: normal inspection, full ROM. Absent: tenderness, swelling Forearm Wrist exam: Present: normal inspection, full ROM. Absent: tenderness, swelling Hand Wrist exam: Present: normal inspection, full ROM. Absent: tenderness, swelling Vascular: Present: normal capillary refill. Absent: vascular compromise (Neurovascular within normal limits) - Back Exam Back exam: Present: normal inspection, full ROM. Absent: tenderness, CVA tenderness (R), CVA tenderness (L), muscle spasm, paraspinal tenderness, vertebral tenderness, rash noted - Neurological Exam Neurological exam: Present: alert, oriented X3, normal gait - Psychiatric Psychiatric exam: Present: normal affect, normal mood - Skin Skin exam: Present: warm, dry, intact, normal color. Absent: rash ED Course Vital Signs 09/11/20 09/11/20 07:16 12:09 Temperature 98.2 F Pulse Rate 58 L Respiratory 20 18 Rate Blood Pressure 109/53 O2 Sat by Pulse 95 Oximetry - Reevaluation(s) Reevaluation #1: 09/11/20 11:58 Patient is speaking in full sentences with no signs of distress noted. ED Medical Decision Making - Medical Decision Making This is a 49-year-old female that presents with right shoulder bursitis. Patient is stable and was examined by me. I referred patient to an orthopedic doctor for further evaluation for possible MRI. Patient does have normal range of motion and no joint swelling. No ecchymosis. no joint redness or swelling. Not warm to touch. No signs of cellulites present. Patient received Toradol and prednisone which stated symptoms improved and subsided. At time of discharge, the patient does not seem toxic or ill in appearance. No acute signs of distress noted. Patient agrees to discharge treatment plan of care. No further questions noted by the patient. Critical care attestation.: If time is entered above; I have spent that time in minutes in the direct care of this critically ill patient, excluding procedure time. ED Disposition Clinical Impression: Bursitis of right shoulder Disposition: DC-01 TO HOME OR SELFCARE Is pt being admited?: No Does the pt Need Aspirin: No Condition: Stable Instructions: Bursitis Additional Instructions: Follow-up with a orthopedic doctor in 3-5 days or if symptoms worsen and continue return to emergency room as soon as possible. Referrals: SAMANTHA NICHOLSON MD [Primary Care Provider] - 3-5 Days CARMELO ORDOÑEZ MD [Staff Physician] - 3-5 Days Time of Disposition: 12:26
[2020-09-11] MEDS ORDERED: KETOROLAC 60 MG/2 ML INJ IM ONE (11:49)
[2020-09-11] MEDS ORDERED: predniSONE 20 MG TAB PO ONE (11:49)
== END 2020-09-11 13:00 | disposition home or self-care (01) ==
LOC: ED 07:03
DX: M75.51 Bursitis of right shoulder (principal); R56.9 Unspecified convulsions; F17.200 Nicotine dependence, unspecified, uncomplicated; Z98.51 Tubal ligation status; Z90.49 Acquired absence of other specified parts of digestive tract; Z98.890 Other specified postprocedural states; Z79.899 Other long term (current) drug therapy
CPT/HCPCS: 96372; 99282; J1885; J7512

== ENCOUNTER 2021-02-27 06:16 | Emergency (ER) | payer MEDICARE ==
[2021-02-27 07:04] VITALS: BP 124/78
--- NOTE | 2021-02-27 07:30 | Emergency Department Report ---
HPI - General Chief Complaint: Extremity Problem,Nontraumatic Time Seen by Provider: 02/27/21 07:24 - HPI HPI: 50-year-old -[place] female presents to the emergency department with complaint of chronic right shoulder pain. The patient has been following with a local orthopedist, Dr. Marie, in [place]. She had an MRI of the shoulder done about 8 weeks ago and just had an appointment last week for the results of the MRI and further evaluation. She says that she was told that she has a "cyst surrounded by fluid and some torn muscles." She was given a joint injection that she believes to be steroids, and was given a prescription for Tylenol with codeine. She waited for a week to see if the injection would work but it did not. She also says that the pain medication has not been working. She denies any increased swelling, skin color changes, numbness or paresthesias. She is right-hand dominant. ED Past Medical Hx - Past Medical History Previous Medical History?: Yes Hx Seizures: Yes Hx Psychiatric Treatment: Yes (bipolar disorder and anxiety and depression) Additional medical history: Back and neck pain= chronic/ BURSITIS - Surgical History Past Surgical History?: Yes Hx Appendectomy: Yes (2010) Additional Surgical History: Tubaligation, Abd. hernnia repair - Social History Smoking Status: Current Every Day Smoker Substance Use Type: None - Medications Home Medications: Home Medications Medication Instructions Recorded Confirmed Last Taken Type Fluconazole [Diflucan TAB] 100 mg PO QDAY #2 tablet 04/09/20 Unknown Rx Sulfamethoxazole/Trimethoprim 1 each PO BID #10 tablet 04/09/20 Unknown Rx [Bactrim DS TAB] HYDROcodone/APAP 5-325 [Pickrell 1 each PO Q6HR PRN #12 tablet 02/27/21 Unknown Rx 5/325] ED Review of Systems ROS: Stated complaint: RT SHOULDER PAIN Other details as noted in HPI Comment: All other systems reviewed and negative Constitutional: denies: chills, fever Eyes: denies: eye pain, vision change ENT: denies: ear pain, throat pain Respiratory: denies: cough, shortness of breath Cardiovascular: denies: chest pain, palpitations Gastrointestinal: denies: abdominal pain, vomiting Genitourinary: denies: dysuria, discharge Musculoskeletal: joint swelling. denies: back pain Skin: denies: rash, lesions Neurological: denies: numbness, paresthesias Physical Exam - Physical Exam Vital Signs: Vital Signs 02/27/21 06:57 Temperature 98.9 F Pulse Rate 84 Respiratory 16 Rate Blood Pressure 124/78 [Left] O2 Sat by Pulse 100 Oximetry Physical Exam: GENERAL: The patient is well-developed well-nourished. HENT: Normocephalic. Atraumatic. Patient has moist mucous membranes. EYES: Extraocular motions are intact. NECK: Supple. Trachea is midline. CHEST/LUNGS: Clear to auscultation. There is no respiratory distress noted. HEART/CARDIOVASCULAR: Regular. There is no tachycardia. There is no murmur. SKIN: Skin is warm and dry. NEURO: The patient is awake, alert, and oriented. The patient is cooperative. The patient has no focal neurologic deficits. Normal speech. MUSCULOSKELETAL: There is some tenderness to palpation to the right shoulder but no obvious deformity. The patient has a shoulder immobilizer on holding her right upper extremity against her body. Radial pulse +2/4 and capillary refill less than 2 seconds to the affected right upper extremity. ED Course Vital Signs 02/27/21 06:57 Temperature 98.9 F Pulse Rate 84 Respiratory 16 Rate Blood Pressure 124/78 [Left] O2 Sat by Pulse 100 Oximetry ED Medical Decision Making - Medical Decision Making This patient presents to the emergency department essentially for pain control. She is already following up outpatient with an orthopedist and had an MRI that showed a right shoulder cyst and some muscle tear. Patient also recently had a joint injection. The shoulder does not appear swollen, warm, erythematous for concern of septic arthritis. Vital signs reassuring including being afebrile. The patient will discontinue the Tylenol 3 and I have given her a small prescription for Pickrell. The patient is not able to see her orthopedist until this coming Tuesday. Critical Care Time: No Critical care attestation.: If time is entered above; I have spent that time in minutes in the direct care of this critically ill patient, excluding procedure time. ED Disposition Clinical Impression: Cyst of joint of shoulder Right shoulder pain Qualifiers: Chronicity: unspecified Qualified Code(s): M25.511 - Pain in right shoulder Bursitis of shoulder Qualifiers: Laterality: right Qualified Code(s): M75.51 - Bursitis of right shoulder Disposition: HOME / SELF CARE / HOMELESS Is pt being admited?: No Condition: Stable Instructions: Shoulder Pain Additional Instructions: Please follow-up with your orthopedist on Tuesday. Stop taking the Tylenol with codeine. I am prescribing you a different pain medication. Combining these medications, or taking these medications not as prescribed, can lead to respiratory depression, overdose and/or . You have been prescribed a medication that is sedating and therefore should not be taken prior to driving, working, and responsible for children and in no way should be mixed with alcohol of any quantity. Return to the emergency department with any worsening of your symptoms, new or concerning symptoms not addressed during this current emergency department visit, or with any acute distress. Prescriptions: HYDROcodone/APAP 5-325 [Pickrell 5/325] 1 each PO Q6HR PRN #12 tablet PRN Reason: Pain Referrals: Orthopedist, Your [Other] - 2-3 Days Time of Disposition: 07:40
== END 2021-02-27 08:31 | disposition home or self-care (01) ==
LOC: ED 06:16
DX: M75.51 Bursitis of right shoulder (principal); M25.511 Pain in right shoulder; M25.811 Other specified joint disorders, right shoulder; R56.9 Unspecified convulsions; F32.9 Major depressive disorder, single episode, unspecified; F41.9 Anxiety disorder, unspecified; G89.29 Other chronic pain; M54.9 Dorsalgia, unspecified; M54.2 Cervicalgia; Z90.89 Acquired absence of other organs; Z98.890 Other specified postprocedural states; F17.200 Nicotine dependence, unspecified, uncomplicated
CPT/HCPCS: 99281